=== PATIENT | female | born 1970 | race Caucasian/White ===

== ENCOUNTER 2018-01-24 15:41 | Inpatient (IN) | payer OTHER ==
[2018-01-24] MEDS ORDERED: Ketorolac Tromethamine 30 MG/ML VIAL ONE (16:37)
[2018-01-24] MEDS ORDERED: Aspirin 325 MG TAB ONE (16:37)
[2018-01-24] MEDS ORDERED: Pantoprazole 40 MG VIAL ONE (16:37)
[2018-01-24] MEDS ORDERED: HYDROcodone/Acetaminophen 10/325 mg Tablet ONE (17:11)
[2018-01-24 18:00] LABS: Troponin I Less than 0.010 ng/mL (< 0.028)
--- NOTE | 2018-01-24 18:14 | HP ---
PRIMARY CARE PHYSICIAN: Dr. Rosado in the [facility]. CHIEF COMPLAINT: Lower extremity edema. HISTORY OF PRESENT ILLNESS: Ms. Joshi is a very pleasant 47-year-old female that has a history of hypertension and chronic abdominal pain from complications of gastric bypass surgery. She was in her usual state of health until about a month ago when she started noticing increasing swelling in both of her legs. It got progressively worse over the weeks. She went to the emergency room at the [facility] in [place]. Initially, she says they told her to keep her legs elevated and to watch her diet and did not give her any specific treatment. She says she tried doing this, but it got progressively worse to the point where the swelling started going up into her abdomen and into the left side of her chest and her breast and she says that even went up into her face. She said it got so bad that she had to go back to the ER for evaluation. At this time she says they ran some test. They did a CT scan as well as a chest x-ray and some lab work. They gave her IV Lasix and discharged her from the ER. She says she did start to put out some fluid with this, but continued to have the swelling and then developed a rash on her legs and on her breast and for this reason she returned to the ER and was sent to our hospital for further evaluation. She denies, however, having any chest pain. She denies any shortness of breath. She has not been waking up through the night short of breath. She does have some cough off and on with some congestion as well as some nausea, but no other specific complaints. She denies any palpitations. She denies feeling dizzy or lightheaded. The patient also does complain of chronic abdominal pain which she attributes due to gastric bypass surgery complications and she has had some diarrhea which has been watery over the last 3 days. Otherwise, no other complaints. There was no blood in the stool and no dark stools, no vomiting. REVIEW OF SYSTEMS: All systems were reviewed and negative except for that mentioned in history of present illness. PAST MEDICAL HISTORY: Significant for hypertension, gastroesophageal reflux disease, enlarged liver and neuropathy as well as chronic abdominal pain. PAST SURGICAL HISTORY: She had a gastric bypass surgery 11 years ago. She has had 10 surgeries since then due to complications. She has hernia surgery with mesh and x4. ALLERGIES: No known drug allergies. SOCIAL HISTORY: She is . She has 4 children, all girls. She smokes about a half a pack of cigarettes a day for 30 years. Denies any alcohol use. FAMILY HISTORY: Significant for diabetes mellitus, hypertension, and liver cancer. MEDICATIONS: Include lisinopril 40 mg daily, gabapentin 800 mg t.i.d., promethazine 25 mg q.6., Protonix 40 mg daily, hydrocodone 10/325 she takes 2 tablets every 4-6 hours as needed. PHYSICAL EXAMINATION: GENERAL: She is alert and oriented. She appears to be in no acute distress. She is chronically ill appearing; however, she is well-developed and well- nourished. VITAL SIGNS: Blood pressure was 135/97, heart rate 74, respiratory rate of 20, temperature is 98.2. HEENT: Pupils are equal, round, and reactive. Extraocular muscles are intact. Her sclerae anicteric. Sclerae are slightly pale. Throat: There is no erythema, no exudates. NECK: No adenopathy, no bruits. LUNGS: Clear to auscultation bilaterally. There are no wheezing, rales or rhonchi. CARDIOVASCULAR: She had a normal S1 and S2. I do not appreciate an S3 or S4. No murmurs, clicks or rubs. ABDOMEN: Soft, it is nontender, nondistended, it is tympanic to percussion. She did have some dullness at the flanks. There is no rebound or guarding. EXTREMITIES: She has got tense pitting edema in both lower extremities going up into the thigh and also some edema on the lower abdomen. There was some mild diffuse erythema on the skin, but no significant warmth. NEUROLOGIC: Her muscle strength is intact in both her upper and lower extremities. Reflexes are intact and is grossly nonfocal. SKIN: Again she had some mild erythema, but no warmth or redness and there was some stria on the abdomen. IMAGING DATA AND LABORATORY DATA: On her EKG and this is by my reading, it was sinus rhythm, rate was 75. She had some T-wave inversions in 3, low voltage and T's, which were inverted in V1 and V2. Chest x-ray was reported as having a pleural effusion, possibly no airspace disease. Her sodium was 140, potassium 4.0, chloride is 109, CO2 is 24, BUN of 14.5, creatinine 0.9, glucose is 73. Calcium was 7.6. Troponin less than 0.010. BNP was 332. White blood cell count 13.7, hemoglobin 9.6, hematocrit is 29.5, platelet count is 235. ASSESSMENT AND PLAN: CHF and volume overload -This is a pleasant 47-year-old female that presents with progressive lower extremity edema which has developed into almost steffanie anasarca. The etiology of which is known. She also has an elevated BNP. This could represent heart failure. She appears to have hypertension which may not be well controlled and this does put her at risk for congestive heart failure. Also, concern is the anemia and the rash which is not clearly defined. This leads one to be concerned of things such as myeloma or amyloidosis or collagen vascular disease or could be nutritional given her history of gastric bypass surgery. Therefore, she will be placed in observation and an echocardiogram will be obtained to assess her ejection fraction. We will also do some routine lab work such as getting an XAVIER as well as an SPEP, UPEP to screen for myeloma. We will also check iron studies given her anemia. She will be treated symptomatically with Lasix and restart her Lasix for the edema. Hypertension. This appears to be poorly controlled. We will continue lisinopril, monitor her trend, p.r.n. medications as needed her home medications may need to be adjusted. Chronic pain. We will continue her usual Sarita. She has been asking for pain medications fairly consistently in the ER. This was discussed in detail and no evidence for any new pain has been discovered and as such we will continue on her usual Sarita for now. JEOVANY
[2018-01-24] MEDS ORDERED: Acetaminophen 325 MG TAB PO PRN ×2 (19:22→19:38)
[2018-01-24] MEDS ORDERED: Ondansetron HCl/PF 4 MG/2 ML Vial IVP PRN (19:22)
[2018-01-24] MEDS ORDERED: Ondansetron ODT 4 MG TAB SL PRN (19:22)
[2018-01-24] MEDS ORDERED: Promethazine 25 MG TAB PO PRN (19:38)
[2018-01-24] MEDS ORDERED: Mag-Al 1200 mg/1200 mg/30 ML UDCUP PO PRN (19:38)
[2018-01-24] MEDS ORDERED: hydrALAZINE 20 MG/ML VIAL SLOW IVP PRN (19:38)
[2018-01-24] MEDS ORDERED: HYDROcodone/Acetaminophen 10/325 mg Tablet PO PRN (19:38)
[2018-01-24 20:37] LABS: Troponin I Less than 0.010 ng/mL (< 0.028)
[2018-01-24 21:08] LABS: Reticulocyte Count 2.3 % (0.5-1.5)
[2018-01-24 21:27] LABS: Albumin 2.7 g/dL (3.5-5.0); Globulin 3.4 g/dL (2.4-3.5); Protein, Total 6.1 g/dL (6.0-8.3)
[2018-01-24 22:13] LABS: Folate (Folic Acid) 10.2 ng/mL (7.0-31.4)
[2018-01-24] MEDS: HYDROcodone/Acetaminophen 10/325 mg Tablet PO PRN (23:31)
[2018-01-24] MEDS: Promethazine 25 MG TAB PO SCH (23:32)
[2018-01-25] MEDS: HYDROcodone/Acetaminophen 10/325 mg Tablet PO PRN ×4 (03:23→20:24)
[2018-01-25] MEDS: Promethazine 25 MG TAB PO SCH ×3 (05:32→17:00)
[2018-01-25] MEDS: Furosemide 40 MG/4 ML VIAL SLOW IVP SCH ×2 (05:32→13:34)
[2018-01-25 06:09] LABS: Anion Gap 10 mmol/L (10-20); BUN (Urea Nitrogen) 15 mg/dL (7.0-18.7); Calc. Creatinine Clearance 72 mL/min (70-130); Calcium 7.3 mg/dL (7.8-10.44); Carbon Dioxide 26 mmol/L (22-29); Chloride 107 mmol/L (98-107); Estimated GFR-MDRD 61; Glucose 71 mg/dL (70-105); Potassium 3.7 mmol/L (3.5-5.1); Sodium 139 mmol/L (136-145)
[2018-01-25 06:10] LABS: #Lymphocytes 1.9 thou/uL (1.20-3.40); #Monocytes 0.6 thou/uL (0.11-0.59); #Neutrophils 3.5 thou/uL (1.40-6.50); %Basophils 0.3 % (0.0-1.0); %Eosinophils 0.8 % (0.0-10.0); %Lymphocytes 31.4 % (21.0-51.0); %Neutrophils 57.5 % (42.0-75.0); Hemoglobin 8.2 g/dL (12.0-16.0); Mean Corpuscular Hemoglobin 30.7 pg (27.0-31.0); Mean Corpuscular Volume 95.8 fL (78.0-98.0); Mean Platelet Volume 8.2 fL (7.4-10.4); Platelet Count 176 thou/uL (130-400); Red Blood Cell (RBC) Count 2.66 mill/uL (4.20-5.40)
[2018-01-25] MEDS: Enoxaparin Sodium 40 MG/0.4 ML SYRINGE SC SCH (08:54)
--- NOTE | 2018-01-25 09:45 | PDOC.PN ---
- Subjective Encounter Start Date: 01/25/18 Encounter Start Time: 09:43 Ms. Joshi was seen today in follow-up of lower extremity edema. She says she is feeling a little better today. She still has significant swelling in her lower extremities. - Objective Resuscitation Status: Resuscitation Status FULL:Full Resuscitation MAR Reviewed: Yes Vital Signs & Weight: Vital Signs (12 hours) Temp Pulse Resp BP Pulse Ox 01/25/18 04:00 97.9 F 69 20 142/87 H 99 Weight Weight 140 lb 12.8 oz I&O: 01/24/18 01/25/18 01/26/18 06:59 06:59 06:59 Intake Total 550 Output Total 300 Balance 250 Result Diagrams: 01/25/18 05:24 01/26/18 05:34 Phys Exam - Physical Examination HEENT: PERRLA, sclera anicteric Respiratory: no wheezing, no rales, no rhonchi, clear to auscultation bilateral Cardiovascular: RRR, no significant murmur, no rub Gastrointestinal: soft, non-tender, no distention, positive bowel sounds Musculoskeletal: edema present 3+ pitting edema in both lower extremities, and mild erythema bolaterally, Neurological: non-focal, normal sensation, moves all 4 limbs Dx/Plan (1) Normocytic normochromic anemia Code(s): D64.9 - ANEMIA, UNSPECIFIED Status: Chronic (2) Hypertension Code(s): I10 - ESSENTIAL (PRIMARY) HYPERTENSION Status: Chronic (3) Hypoalbuminemia Code(s): E88.09 - OTH DISORDERS OF PLASMA-PROTEIN METABOLISM, NEC Status: Chronic (4) Chronic abdominal pain Code(s): R10.9 - UNSPECIFIED ABDOMINAL PAIN; G89.29 - OTHER CHRONIC PAIN Status: Chronic (5) Bilateral lower extremity edema Code(s): R60.0 - LOCALIZED EDEMA Status: Acute - Plan * Lower extremity edema- ? CHF exacerbation- still awaiting Echo to determine if this is heart mediated edema * XAVIER, SPEP, and urine protein levels are also pending * Continue IV Lasix * Will request CT scan results from [facility] in [place] * Anemia- she tell me she has been anemic every since her Gastric Bypass surgery - her iron level is at the lowest normal, and ferritin is in the lower side as well- I suspect this is due to iron deficiency- likely nutritional * HTN- will re-start Lisinopril * Hypoalbuminemia- will await urine protein levels * Chronic pain- continue [place] .
[2018-01-25 10:42] LABS: Albumin 2.5 g/dL (3.5-5.0); Globulin 2.9 g/dL (2.4-3.5); Protein, Total 5.4 g/dL (6.0-8.3)
[2018-01-25 11:08] LABS: HBSAg Index 0.15 S/CO (0-0.99); Hep A IgM AB Non-Reactive (NonReactive); Hep A IgM S/CO 0.37 S/CO (0-0.79); Hep B Surf Ag Non-Reactive S/CO (NonReactive); Hep C IgG Ab Non-Reactive (NonReactive); Hep C Index 0.09 S/CO (0-0.79); Hepatitis B Core IGM Abs Non-Reactive (NonReactive)
[2018-01-25] MEDS: Gabapentin 400 MG CAP PO SCH ×3 (11:30→20:22)
[2018-01-25] MEDS ORDERED: Lisinopril 20 MG TAB PO SCH (11:45)
[2018-01-26] MEDS: HYDROcodone/Acetaminophen 10/325 mg Tablet PO PRN ×6 (00:44→22:32)
[2018-01-26] MEDS: Promethazine 25 MG TAB PO SCH ×4 (00:45→17:26)
[2018-01-26] MEDS: Furosemide 40 MG/4 ML VIAL SLOW IVP SCH ×2 (05:50→14:30)
[2018-01-26 06:14] LABS: Anion Gap 11 mmol/L (10-20); BUN (Urea Nitrogen) 14 mg/dL (7.0-18.7); Calc. Creatinine Clearance 73 mL/min (70-130); Calcium 7.6 mg/dL (7.8-10.44); Carbon Dioxide 27 mmol/L (22-29); Chloride 105 mmol/L (98-107); Estimated GFR-MDRD 61; Glucose 73 mg/dL (70-105); Potassium 3.8 mmol/L (3.5-5.1); Sodium 139 mmol/L (136-145)
[2018-01-26] MEDS: Gabapentin 400 MG CAP PO SCH ×3 (08:29→20:30)
[2018-01-26] MEDS: Lisinopril 20 MG TAB PO SCH (08:30)
[2018-01-26] MEDS: Enoxaparin Sodium 40 MG/0.4 ML SYRINGE SC SCH (08:32)
[2018-01-26] MEDS ORDERED: Lisinopril 20 MG TAB PO SCH (09:00)
--- NOTE | 2018-01-26 11:11 | PDOC.PN ---
- Subjective Encounter Start Date: 01/26/18 Encounter Start Time: 11:07 Ms. Joshi was seen today in follow up of lower extremity edema. She says the swelling in her legs has improved, but is still quite swollen. She also says both legs are burning, like a sun burn, and the left breast as well. - Objective Resuscitation Status: Resuscitation Status FULL:Full Resuscitation MAR Reviewed: Yes Vital Signs & Weight: Vital Signs (12 hours) Temp Pulse Resp BP BP Pulse Ox 01/26/18 08:30 130/71 01/26/18 08:00 98.1 F 85 18 130/71 96 01/26/18 05:43 130/83 98 01/26/18 04:00 97.9 F 86 15 113/76 92 L Weight Weight 132 lb 6.4 oz I&O: 01/25/18 01/26/18 01/27/18 06:59 06:59 06:59 Intake Total 550 970 Output Total 300 Balance 250 970 Result Diagrams: 01/25/18 05:24 01/26/18 05:34 Phys Exam - Physical Examination HEENT: PERRLA Respiratory: no wheezing, no rales, no rhonchi, clear to auscultation bilateral Cardiovascular: RRR, no significant murmur, no rub no gallop Gastrointestinal: soft, non-tender, no distention, positive bowel sounds Musculoskeletal: pulses present, edema present Bilateral tense edema, as well aserythema in both legs, as well as some warmth, and tenderness to palpation, no fluctuance Neurological: non-focal, moves all 4 limbs Dx/Plan (1) Bilateral lower extremity edema Code(s): R60.0 - LOCALIZED EDEMA Status: Acute (2) Normocytic normochromic anemia Code(s): D64.9 - ANEMIA, UNSPECIFIED Status: Chronic (3) Cellulitis of both lower extremities Code(s): L03.115 - CELLULITIS OF RIGHT LOWER LIMB; L03.116 - CELLULITIS OF LEFT LOWER LIMB Status: Acute (4) Hypertension Code(s): I10 - ESSENTIAL (PRIMARY) HYPERTENSION Status: Chronic (5) Hypoalbuminemia Code(s): E88.09 - OTH DISORDERS OF PLASMA-PROTEIN METABOLISM, NEC Status: Chronic (6) Chronic abdominal pain Code(s): R10.9 - UNSPECIFIED ABDOMINAL PAIN; G89.29 - OTHER CHRONIC PAIN Status: Chronic - Plan * Her Echo was normal- therefore CHF has been ruled out. The edmea is coming from the low albumin. Unsure if she is losing protein in her urine, or not absorbing it as a result of complications of her qmod7ht bypass surgery * Urine for protein has not been done- will re-order * Cellulitis- she also has some redness and pain in her legs which can not entirely be attributed to swelling- will treat for cellulitis * HTN- blood pressure has improved with Lisinopril * Continue IV Lasix for now
[2018-01-26 12:06] LABS: ANA Symphony (Qualitative) Negative (Negative); dsDNA IgG Antibody 0.6 IU/mL (<10 Negative)
[2018-01-26] MEDS: cefTRIAXone\\ROCEPHIN 1 GM in Sodium Chloride 0.9% 100 ML IVPB SCH (12:24)
[2018-01-26 14:54] VITALS: BMI 26.7
[2018-01-26 18:02] LABS: Creatinine, Urine 25.14 mg/dL (47-110); Microalbumin Urine Less than 1.0 mg/dL (0.5-50.0)
[2018-01-27] MEDS: Promethazine 25 MG TAB PO SCH ×4 (00:15→17:43)
[2018-01-27] MEDS: HYDROcodone/Acetaminophen 10/325 mg Tablet PO PRN ×5 (04:04→21:33)
[2018-01-27 04:51] LABS: Anion Gap 11 mmol/L (10-20); BUN (Urea Nitrogen) 16 mg/dL (7.0-18.7); Calc. Creatinine Clearance 72 mL/min (70-130); Calcium 7.6 mg/dL (7.8-10.44); Carbon Dioxide 28 mmol/L (22-29); Chloride 103 mmol/L (98-107); Estimated GFR-MDRD 64; Glucose 75 mg/dL (70-105); Potassium 3.3 mmol/L (3.5-5.1); Sodium 139 mmol/L (136-145)
[2018-01-27] MEDS: Furosemide 40 MG/4 ML VIAL SLOW IVP SCH ×2 (05:15→13:23)
[2018-01-27] MEDS: Gabapentin 400 MG CAP PO SCH ×3 (09:03→21:35)
[2018-01-27] MEDS: Enoxaparin Sodium 40 MG/0.4 ML SYRINGE SC SCH (09:06)
--- NOTE | 2018-01-27 10:41 | PDOC.PN ---
- Subjective Encounter Start Date: 01/27/18 Encounter Start Time: 10:38 Ms. Joshi was seen today in follow-up of lower extremity edema, and pain in both legs. She says she still has some pain in the legs. She denies any chest pain or dyspnea. - Objective Resuscitation Status: Resuscitation Status FULL:Full Resuscitation MAR Reviewed: Yes Vital Signs & Weight: Vital Signs (12 hours) Temp Pulse Resp BP Pulse Ox 01/27/18 08:00 98.3 F 94 18 160/101 H 100 Weight Admit Weight 138 lb 8 oz Weight 134 lb 4.8 oz I&O: 01/26/18 01/27/18 01/28/18 06:59 06:59 06:59 Intake Total 970 1980 Output Total 1200 Balance 970 780 Result Diagrams: 01/25/18 05:24 01/27/18 04:00 Phys Exam - Physical Examination HEENT: PERRLA, sclera anicteric Respiratory: no wheezing, no rales, no rhonchi, clear to auscultation bilateral Cardiovascular: RRR, no significant murmur, no rub Gastrointestinal: soft, non-tender, no distention, positive bowel sounds Musculoskeletal: pulses present, edema present + massive lower extremity edema bilaterally, erythema present, but improved Neurological: non-focal, normal sensation Psychiatric: normal affect Dx/Plan (1) Bilateral lower extremity edema Code(s): R60.0 - LOCALIZED EDEMA Status: Acute (2) Normocytic normochromic anemia Code(s): D64.9 - ANEMIA, UNSPECIFIED Status: Chronic (3) Cellulitis of both lower extremities Code(s): L03.115 - CELLULITIS OF RIGHT LOWER LIMB; L03.116 - CELLULITIS OF LEFT LOWER LIMB Status: Acute (4) Hypertension Code(s): I10 - ESSENTIAL (PRIMARY) HYPERTENSION Status: Chronic (5) Hypoalbuminemia Code(s): E88.09 - OTH DISORDERS OF PLASMA-PROTEIN METABOLISM, NEC Status: Chronic (6) Chronic abdominal pain Code(s): R10.9 - UNSPECIFIED ABDOMINAL PAIN; G89.29 - OTHER CHRONIC PAIN Status: Chronic - Plan * Lower extremity edema- this is likely nutritional in origin, a complication of the gastric bypass surgery. She is not spilling any significant amount of protein in her urine. She has seen the manager product design and has been counselled on a high protein diet * Cellulitis- both lower extremities- continue Rocephin, she has had a little improvement * HTN- blood pressure is not well controlled- will add Carvediolol * Hypoalbuminemia- as above, will try a high protein diet, and outpatient referral to Surgery/GI * Tobacco Abuse- patient has been counselled on smoking cessation * Hopefully home tomorrow.
[2018-01-27] MEDS: cefTRIAXone\\ROCEPHIN 1 GM in Sodium Chloride 0.9% 100 ML IVPB SCH (12:02)
[2018-01-27] MEDS: Lisinopril 20 MG TAB PO SCH (12:08)
[2018-01-27 16:14] LABS: Albumin-Ur 28.9 % (.); Alpha 1 - Ur 7.3 % (.); Alpha 2 - Ur 12.7 % (.); Beta-Ur 17.9 % (.); Gamma-Ur 33.2 % (.); M-Spike,% Not Observed % (Not Observed); Protein, Urine 15.1 mg/dL (Not Estab.)
[2018-01-27] MEDS: Carvedilol 3.125 MG TAB PO SCH (16:19)
[2018-01-28] MEDS: Promethazine 25 MG TAB PO SCH ×4 (00:06→17:39)
[2018-01-28 04:29] LABS: Anion Gap 13 mmol/L (10-20); BUN (Urea Nitrogen) 14 mg/dL (7.0-18.7); Calc. Creatinine Clearance 74 mL/min (70-130); Calcium 7.7 mg/dL (7.8-10.44); Carbon Dioxide 29 mmol/L (22-29); Chloride 103 mmol/L (98-107); Estimated GFR-MDRD 66; Glucose 80 mg/dL (70-105); Potassium 3.2 mmol/L (3.5-5.1); Sodium 142 mmol/L (136-145)
[2018-01-28] MEDS: HYDROcodone/Acetaminophen 10/325 mg Tablet PO PRN ×5 (05:25→21:25)
[2018-01-28] MEDS: Furosemide 40 MG/4 ML VIAL SLOW IVP SCH ×2 (05:26→13:35)
[2018-01-28] MEDS: Enoxaparin Sodium 40 MG/0.4 ML SYRINGE SC SCH (08:36)
[2018-01-28] MEDS: Lisinopril 20 MG TAB PO SCH (08:36)
[2018-01-28] MEDS: Carvedilol 3.125 MG TAB PO SCH (08:36)
[2018-01-28] MEDS: Gabapentin 400 MG CAP PO SCH ×3 (08:36→21:26)
[2018-01-28] MEDS: cefTRIAXone\\ROCEPHIN 1 GM in Sodium Chloride 0.9% 100 ML IVPB SCH (12:04)
[2018-01-28] MEDS ORDERED: Potassium Chloride 20 MEQ TAB PO SCH (13:30)
--- NOTE | 2018-01-28 13:45 | PDOC.PN ---
- Subjective Encounter Start Date: 01/28/18 Encounter Start Time: 13:43 Ms. Joshi was seen today in follow-up of lower extremity edema. She says her legs still feel very tight, and she says they are sore. She denies chest pain or difficulty breathing. - Objective Resuscitation Status: Resuscitation Status FULL:Full Resuscitation MAR Reviewed: Yes Vital Signs & Weight: Vital Signs (12 hours) Temp Pulse Resp BP BP Pulse Ox 01/28/18 08:36 160/101 H 01/28/18 08:00 96 01/28/18 07:20 98.6 F 96 20 146/95 H 96 Weight Admit Weight 138 lb 8 oz Weight 134 lb 4.8 oz I&O: 01/27/18 01/28/18 01/29/18 06:59 06:59 06:59 Intake Total 1980 1560 240 Output Total 1200 Balance 780 1560 240 Result Diagrams: 01/25/18 05:24 01/28/18 03:48 Phys Exam - Physical Examination HEENT: PERRLA Respiratory: no wheezing, no rales, no rhonchi, clear to auscultation bilateral Cardiovascular: RRR, no significant murmur, no rub no gallop Gastrointestinal: soft, non-tender, no distention, positive bowel sounds Musculoskeletal: pulses present, edema present tight pitting edema, bilaterally, mild warmth Psychiatric: normal affect, A&O x 3 Skin: cap refill <2 seconds Dx/Plan (1) Bilateral lower extremity edema Code(s): R60.0 - LOCALIZED EDEMA Status: Acute (2) Normocytic normochromic anemia Code(s): D64.9 - ANEMIA, UNSPECIFIED Status: Chronic (3) Cellulitis of both lower extremities Code(s): L03.115 - CELLULITIS OF RIGHT LOWER LIMB; L03.116 - CELLULITIS OF LEFT LOWER LIMB Status: Acute (4) Hypertension Code(s): I10 - ESSENTIAL (PRIMARY) HYPERTENSION Status: Chronic (5) Hypoalbuminemia Code(s): E88.09 - OTH DISORDERS OF PLASMA-PROTEIN METABOLISM, NEC Status: Chronic (6) Chronic abdominal pain Code(s): R10.9 - UNSPECIFIED ABDOMINAL PAIN; G89.29 - OTHER CHRONIC PAIN Status: Chronic - Plan * Lower extremity edema due to hypoalbuminemia- swelling is worse today, but she has been on her feet more. Will continue IV Lasix and will likely need to add compression stockings as well. * I received and reviewed the records from [facility]. She had a CT scan of the abdomen and Pelvis, in which there was noted some hepatomegaly, but otherwise it was normal. She also had bilateral lower extremity venous dopplers which were negative for DVT. These were done on 01/22/2018. Will repeat the venous dopplers- ( serial venous ultrasound) * Cellulitis- presumed- will obtain another opinion. Will consult ID . Continue Rocephin * HTN- blood pressure is not controlled- will increase Carvediolol to 6.25mg twice a day * Hypoalbuminemia- I suspect nutritional from Gastric bypass surgery- stable
--- NOTE | 2018-01-28 16:20 | ULT ---
BILATERAL LOWER EXTREMITY VENOUS DOPPLER ULTRASOUND: HISTORY: Bilateral lower extremity edema. TECHNIQUE: Alexis scale ultrasound with color-flow and spectral Doppler imaging of the deep venous system of the l ower extremities is performed bilaterally. FINDINGS: There is good flow, compression, and augmentation noted in the common femoral, femoral, deep femoral, popliteal, posterior tibial, and greater saphenous veins. IMPRESSION: No evidence of deep venous thrombosis in either lower extremity. POS: GRAZYNA
[2018-01-28] MEDS: Carvedilol 6.25 MG TAB PO SCH (17:39)
[2018-01-29] MEDS: Promethazine 25 MG TAB PO SCH ×4 (00:26→17:52)
[2018-01-29] MEDS: HYDROcodone/Acetaminophen 10/325 mg Tablet PO PRN ×5 (01:42→17:52)
[2018-01-29] MEDS: Furosemide 40 MG/4 ML VIAL SLOW IVP SCH ×2 (06:00→13:20)
--- NOTE | 2018-01-29 07:37 | CON ---
DATE OF CONSULTATION: 01/29/2018 REASON FOR CONSULTATION: Leg changes. HISTORY OF PRESENT ILLNESS: A 47-year-old patient who has a history of obesity with gastric bypass surgery done elsewhere 11 years ago. Subsequently, she has had a number of other surgeries, mostly to repair hernias and also cholecystectomy, appendectomy and so. This time she came to the hospital because of worsening swelling of lower extremities with what she described as this pain in the skin surface both right and left side. This pain seems to represent hyperesthesia. She also has some swelling in the abdomen as well and chest area. She has been seen in the emergency room previously and given Lasix with persistence of changes and now she is admitted. No headaches, no dyspnea, no chest pain, no cough or sputum production. No visual symptoms, sore throat, odynophagia or dysphagia. No genitourinary symptoms. Some diarrhea. ALLERGIES: None. SOCIAL HISTORY: . Still smoking about half a pack of cigarettes. No alcoholic beverage use. FAMILY HISTORY: Diabetes, liver cancer, hypertension. MEDICATIONS: At that time in the outpatient setting includes lisinopril, gabapentin, promethazine, Protonix, hydrocodone. CURRENT MEDICATIONS: Tylenol, [place], Maalox, Coreg, ceftriaxone, furosemide, gabapentin, lisinopril, promethazine. PHYSICAL EXAMINATION: VITAL SIGNS: T-max has been normal since admission, BP 160/112, respirations 20 , O2 sat 95%, pulse 80. SKIN: Shows there is edema in the lower extremities with very faint erythema in a very symmetric distribution right and left lower extremities below the knee. She also has some hyperkeratosis of the dorsal aspect of the right and left feet. There is evidence of temporal wasting. No lymphadenopathy. HEENT: Ocular movements conjugate. Nasal passages patent. Oral cavity with quite a few teeth. Some missing. Oral mucosa is moist. NECK: Supple, no jugular distention or carotid bruits. LUNGS: Symmetric air entry with no crackles or wheezing. HEART: S1, S2, regular rate without murmurs. No S3 or S4. ABDOMEN: Somewhat distended, question of ascites. EXTREMITIES: No joint inflammatory activity. Pulses are 1+ in dorsalis pedis. The patient has hyperesthesia/hyperalgesia in the skin of the lower extremities. NEUROLOGIC: Cognitive function seems to be intact. LABORATORY DATA: White cell count 6.0, hemoglobin 8.2, MCV 95, platelets 176, normal differential. Retic count 2.3. Chemistry with a sodium of 139, creatinine 0.99, albumin 2.5. BNP 412. Urine creatinine 2.5, total protein 15 , albumin 2.8. Immunology with negative XAVIER screen. Serology with negative hepatitis C and B screen IMAGING STUDIES: There is a venogram with no evidence of deep vein thrombosis and an echocardiogram which demonstrated EF 55-60. Trace mitral regurgitation. ASSESSMENT: History of gastric bypass with other surgeries in the past, now with the hyperalgesia/ hyperesthesia, leg edema with evidence of malnutrition with hypoalbuminemia and wasting syndrome with temporal wasting. DISCUSSION: Differential diagnosis includes malnutrition associated with gastric bypass, including potential deficiencies of multiple micro nutrients and minerals including various vitamins and trace minerals such as selenium, copper and so. We will need to submit assays for those and start replacement. She seems to have protein calorie malnutrition as well. Some of those patients may develop cardiomyopathy, but the echocardiogram did not show any of that. She may have some element of diastolic dysfunction. Cellulitis is unlikely and I would recommend discontinuation of antimicrobial therapy. MTDD
[2018-01-29] MEDS: Lisinopril 20 MG TAB PO SCH (07:57)
[2018-01-29] MEDS: Enoxaparin Sodium 40 MG/0.4 ML SYRINGE SC SCH (07:58)
[2018-01-29] MEDS: Gabapentin 400 MG CAP PO SCH ×2 (07:58→14:35)
[2018-01-29] MEDS: Carvedilol 6.25 MG TAB PO SCH (07:58)
[2018-01-29 08:29] LABS: Iron 31 ug/dL (50-170); Iron Binding Capacity, Total 305 mcg/dL (265-497)
[2018-01-29] MEDS: cloNIDine 0.1 MG TAB PO SCH ×2 (10:14→14:09)
[2018-01-29 11:08] LABS: Ref Lab Test Ordered SELINIUM PLASMA; Reference Lab Name LABCORP
--- NOTE | 2018-01-29 15:29 | PDOC.PN ---
- Subjective Encounter Start Date: 01/29/18 Encounter Start Time: 15:28 Ms. Joshi was seen today in follow-up of lower extremity edema. She does not have any new complaints. - Objective Resuscitation Status: Resuscitation Status FULL:Full Resuscitation MAR Reviewed: Yes Vital Signs & Weight: Vital Signs (12 hours) Temp Pulse Resp BP BP BP Pulse Ox 01/29/18 14:09 155/104 H 01/29/18 10:15 97.6 F 91 16 150/102 H 98 01/29/18 10:14 150/102 H 01/29/18 07:58 170/115 H 01/29/18 07:57 170/115 H 01/29/18 07:12 98.4 F 80 20 163/112 H 95 01/29/18 04:00 81 20 157/98 H Weight Admit Weight 138 lb 8 oz Weight 135 lb 9 oz I&O: 01/28/18 01/29/18 01/30/18 06:59 06:59 06:59 Intake Total 1560 1480 Balance 1560 1480 Result Diagrams: 01/25/18 05:24 01/28/18 03:48 Phys Exam - Physical Examination HEENT: PERRLA Respiratory: no wheezing, no rales, no rhonchi, clear to auscultation bilateral Cardiovascular: RRR, no significant murmur, no rub Gastrointestinal: soft, non-tender, no distention, positive bowel sounds Musculoskeletal: edema present 3+ pitting edema, up her legs to thighs Neurological: non-focal, moves all 4 limbs Dx/Plan (1) Bilateral lower extremity edema Code(s): R60.0 - LOCALIZED EDEMA Status: Acute (2) Normocytic normochromic anemia Code(s): D64.9 - ANEMIA, UNSPECIFIED Status: Chronic (3) Cellulitis of both lower extremities Code(s): L03.115 - CELLULITIS OF RIGHT LOWER LIMB; L03.116 - CELLULITIS OF LEFT LOWER LIMB Status: Acute (4) Hypertension Code(s): I10 - ESSENTIAL (PRIMARY) HYPERTENSION Status: Chronic (5) Hypoalbuminemia Code(s): E88.09 - OTH DISORDERS OF PLASMA-PROTEIN METABOLISM, NEC Status: Chronic (6) Chronic abdominal pain Code(s): R10.9 - UNSPECIFIED ABDOMINAL PAIN; G89.29 - OTHER CHRONIC PAIN Status: Chronic - Plan * Lower extremity due to hypoalbuminemia from malabsortion for gastric bypass surgery- stable * Cellulitis has been ruled out * She is stable for discharge home.
[2018-01-29 16:08] VITALS: BP 141/89; TEMP 98.3
--- NOTE | 2018-01-30 02:18 | DIS ---
DATE OF ADMISSION: 01/24/2018 DATE OF DISCHARGE: 01/29/2018 DISCHARGE DISPOSITION: Home. PRIMARY DISCHARGE DIAGNOSES: 1. Lower extremity edema secondary to hypoalbuminemia. 2. Hypoalbuminemia secondary to protein-calorie malnutrition as a consequence of gastric bypass surg nayana. 3. Hypertension, uncontrolled. 4. Chronic pain. 5. Iron deficiency anemia. 6. Gastroesophageal reflux disease. DISCHARGE MEDICATIONS: Lasix 40 mg daily, potassium chloride 10 mEq daily, multivitamins once a day, iron sulfate 325 mg daily, [place] 10/325 q.4 hours as needed, clonidine 0.1 mg t.i.d., Phenergan 25 m g q.6 hours as needed, Protonix 40 mg daily, lisinopril 40 mg daily, Neurontin 800 mg t.i.d. PROCEDURES DONE DURING ADMISSION: The patient had an echocardiogram in which the ejection fraction w as estimated at 55%-60%. There was no significant valvular disease. She had lower extremity venous Dopplers, which were negative for DVT. She had a urine test for microalbumin, which was negative. S he had a SPEP and UPEP. The urine electrophoresis was negative for any paraproteins. She had an XAVIER screen, which was negative as well as a hepatitis screen, which was negative for A, B, and C. CODE STATUS: FULL CODE. HOSPITAL COURSE: Ms. Joshi is a pleasant 47-year-old female, who presented to the emergency room wit h increasing lower extremity edema as well as pain in her lower extremities. [facility] the [facility] and had been sent home. This time, she cam e to our facility and there was concern that she could have heart failure. An echocardiogram was don e, which was negative. Lower venous Dopplers were done, which was negative for DVT. She had had a p revious CT scan done at the [facility], which we received those results and there was n o evidence of any adenopathy or mass lesions in the abdomen or pelvis, which could attribute to the s welling. They had also done a lower extremity venous Dopplers, which were negative. It is suspected that her hypoalbuminemia is likely due to a consequence of her gastric bypass surgery. She also had low iron levels and was anemic, also thought to be a consequence of the gastric bypass surgery. She was treated with high-protein diet, as well as IV Lasix, and did get some improvement in her symptom s. I also consulted Infectious Disease due to concern for possible cellulitis. This was ruled out a nd it was felt that the pain and burning in her legs is likely due to the massive fluid accumulation. She was also instructed on other conservative measures such as elevating her legs, low-sodium diet, and compression stockings. She was subsequently discharged home and to have close outpatient follow up. I did explain to her that she may need IV iron infusions periodically by her primary care physic liliana, as she may not be able to absorb the iron and may need IV vitamins and IV B12 injections as well since she could have some malabsorption to these as well.
== END 2018-01-29 18:12 | disposition home or self-care (01) | DRG 843 ==
LOC: ERS 15:41 → 2NO 16:20 → T4-A 01-26 13:41
PROVIDERS: ADMIT Internal Medicine; ATTEND Internal Medicine
DX: E88.09 Other disorders of plasma-protein metabolism, not elsewhere classified (principal); E41 Nutritional marasmus; K95.89 Other complications of other bariatric procedure; R60.0 Localized edema; G89.29 Other chronic pain; K21.9 Gastro-esophageal reflux disease without esophagitis; D50.9 Iron deficiency anemia, unspecified; Z23 Encounter for immunization; Z98.84 Bariatric surgery status; I10 Essential (primary) hypertension; F17.210 Nicotine dependence, cigarettes, uncomplicated; Z79.891 Long term (current) use of opiate analgesic; R21 Rash and other nonspecific skin eruption; Y84.8 Other medical procedures as the cause of abnormal reaction of the patient, or of later complication, without mention of misadventure at the time of the procedure; Z68.27 Body mass index [BMI] 27.0-27.9, adult
CPT/HCPCS: 36415; 80048; 80074; 82040; 82043; 82180; 82525; 82607; 82728; 82746; 83540; 83550; 83880; 84155; 84166; 84425; 84484; 84590; 84630; 85025; 85046; 86038; 86225; 90471; 90732; 93306; 93798; 93970; C9113; G0009; J0696; J1650; J1885; J1940; J7050